=== PATIENT | male | born 1970 | race Two or more races ===

== ENCOUNTER 2022-04-27 13:58 | Outpatient (CLI) | payer OTHER | END 2022-04-27 14:09 | disposition home or self-care (01) | LOC: RAD 13:58 | PROVIDERS: ATTEND General Practice | DX: I11.9 Hypertensive heart disease without heart failure (principal) ==

== ENCOUNTER 2022-08-27 12:24 | Outpatient (CLI) | payer OTHER | END 2022-08-27 12:34 | disposition home or self-care (01) | LOC: LAB 12:24 | PROVIDERS: ATTEND Specialist | DX: K42.9 Umbilical hernia without obstruction or gangrene (principal); I10 Essential (primary) hypertension ==

== ENCOUNTER → 2022-08-29 | Outpatient (CLI) | payer OTHER | END | disposition home or self-care (01) | LOC: RAD 11:56 | PROVIDERS: ATTEND Specialist | DX: K42.9 Umbilical hernia without obstruction or gangrene (principal); I10 Essential (primary) hypertension ==

== ENCOUNTER 2022-09-01 05:08 | Day surgery (SDC) | payer OTHER ==
[~2022-09-01] VITALS: Ht 177.8 cm; Wt 113.9 kg
[~2022-09-01 05:08] MED LIST: COZAAR50 MG PO; GABAPENTIN300 M2 PO; IBU800 MG PO; PROTONIX40 MG PO; SINGULAIR10 MG PO; ZOCOR20 MG PO
== END 2022-09-01 13:10 | disposition home or self-care (01) ==
LOC: CIR.AMB 05:08
PROVIDERS: ATTEND Specialist
DX: K42.9 Umbilical hernia without obstruction or gangrene (principal); I10 Essential (primary) hypertension; Z20.822 Contact with and (suspected) exposure to COVID-19

== ENCOUNTER 2022-11-09 13:27 | Inpatient (IN) | payer OTHER ==
[~2022-11-09] VITALS: Ht 177.8 cm; Wt 112.5 kg
[2022-11-09] MEDS ORDERED: HYDROCHLOROTHIA25 MG PO (13:37)
[2022-11-09] MEDS ORDERED: TYLENOL325 MG (13:38)
== END 2022-11-14 11:52 | disposition home or self-care (01) | DRG 603 ==
LOC: ER 13:27 → SURH 18:18
PROVIDERS: ADMIT Specialist; ATTEND Specialist
PROC: BW21YZZ Computerized Tomography (CT Scan) of Abdomen and Pelvis using Other Contrast (ICD-10-PCS; principal; 2022-11-09)
DX: L03.311 Cellulitis of abdominal wall (principal); I10 Essential (primary) hypertension; E66.8 Other obesity; Z20.822 Contact with and (suspected) exposure to COVID-19; K26.9 Duodenal ulcer, unspecified as acute or chronic, without hemorrhage or perforation

== ENCOUNTER 2022-12-02 12:29 | Outpatient (CLI) | payer OTHER ==
[~2022-12-02 12:29] MED LIST changes: +HYDROCHLOROTHIA25 MG PO; +TYLENOL325 MG
== END 2022-12-02 12:40 | disposition home or self-care (01) ==
LOC: RAD 12:29
PROVIDERS: ATTEND Orthopaedic Surgery Orthopaedic Surgery of the Spine
DX: M54.16 Radiculopathy, lumbar region (principal)

== ENCOUNTER → 2022-12-28 | Outpatient (CLI) | payer OTHER | END | disposition home or self-care (01) | LOC: NUCLEAR 12-20 13:45 | PROVIDERS: ATTEND General Practice | DX: M85.9 Disorder of bone density and structure, unspecified (principal) ==

== ENCOUNTER 2023-03-30 14:54 | Outpatient (CLI) | payer OTHER | END 2023-03-30 14:59 | disposition home or self-care (01) | LOC: RAD 14:54 | PROVIDERS: ATTEND Orthopaedic Surgery Orthopaedic Surgery of the Spine | DX: M54.59 Other low back pain (principal) ==

== ENCOUNTER 2023-06-15 12:31 | Outpatient (CLI) | payer OTHER | END 2023-06-15 12:34 | disposition home or self-care (01) | LOC: SONOGRAMA 12:31 | PROVIDERS: ATTEND Specialist/Technologist, Other Nephrology | DX: N18.30 Chronic kidney disease, stage 3 unspecified (principal); R31.9 Hematuria, unspecified; Z91.018 Allergy to other foods ==

== ENCOUNTER 2023-07-17 12:06 | Outpatient (CLI) | payer OTHER | END 2023-07-17 12:13 | disposition home or self-care (01) | LOC: SONOGRAMA 12:06 | PROVIDERS: ATTEND Urology | DX: N40.0 Benign prostatic hyperplasia without lower urinary tract symptoms (principal); N20.0 Calculus of kidney; I11.9 Hypertensive heart disease without heart failure; R73.01 Impaired fasting glucose; Z68.31 Body mass index [BMI] 31.0-31.9, adult; Z13.1 Encounter for screening for diabetes mellitus; E78.2 Mixed hyperlipidemia; E66.09 Other obesity due to excess calories; N18.31 Chronic kidney disease, stage 3a; E55.9 Vitamin D deficiency, unspecified; E56.8 Deficiency of other vitamins; E04.0 Nontoxic diffuse goiter; Z91.018 Allergy to other foods ==

== ENCOUNTER 2023-10-28 08:29 | Outpatient (CLI) | payer OTHER | END 2023-10-28 08:35 | disposition home or self-care (01) | LOC: RAD 08:29 | DX: M25.561 Pain in right knee (principal); M25.562 Pain in left knee; R10.2 Pelvic and perineal pain ==

== ENCOUNTER → 2024-07-08 | Outpatient (CLI) | payer OTHER | END | disposition home or self-care (01) | LOC: RAD 10:07 | DX: N40.0 Benign prostatic hyperplasia without lower urinary tract symptoms (principal); N20.0 Calculus of kidney ==

== ENCOUNTER 2024-10-24 15:36 | Outpatient (CLI) | payer OTHER | END 2024-10-24 15:38 | disposition home or self-care (01) | LOC: LAB 15:36 | PROVIDERS: ATTEND Urology | DX: R97.20 Elevated prostate specific antigen [PSA] (principal) ==

== ENCOUNTER 2024-12-12 16:46 | Outpatient (CLI) | payer OTHER | END 2024-12-12 16:53 | disposition home or self-care (01) | LOC: LAB 16:46 | PROVIDERS: ATTEND Urology | DX: R97.20 Elevated prostate specific antigen [PSA] (principal) ==

== ENCOUNTER 2024-12-20 08:30 | Outpatient (CLI) | payer OTHER | END 2024-12-20 08:33 | disposition home or self-care (01) | LOC: RAD 08:30 | PROVIDERS: ATTEND Physical Medicine & Rehabilitation | DX: M17.11 Unilateral primary osteoarthritis, right knee (principal); M54.50 Low back pain, unspecified; M54.16 Radiculopathy, lumbar region ==